=== PATIENT | male | born 1970 ===

== ENCOUNTER 2019-04-19 20:24 | Emergency (ER) | payer BC ==
--- NOTE | 2019-04-19 20:40 | UC ---
Dental HPI - HPI Summary HPI Summary: 48 yo man, generally in good health, with onset of left facial swelling and dental soreness today, in a known area of decay. No fever, no problems swallowing, no visual symptoms. - History of Current Complaint Stated Complaint: MOUTH/DENTAL COMPLAINT Time Seen by Provider: 04/19/19 20:40 Hx Obtained From: Patient Onset/Duration: Sudden Onset, Lasting Hours Severity: Moderate Aggravating Factor(s): Chewing Alleviating Factor(s): Nothing Related History: Other - known dental decay without recent treatment. - Allergies/Home Medications Allergies/Adverse Reactions: Allergies Allergy/AdvReac Type Severity Reaction Status Date / Time No Known Allergies Allergy Verified 04/19/19 20:40 PMH/Surg Hx/FS Hx/Imm Hx Previously Healthy: Yes - Family History Known Family History: Positive: Cardiac Disease - mother of CHF, had a fib - Social History Occupation: Employed Full-time Lives: With Family Review of Systems All Other Systems Reviewed And Are Negative: Yes Constitutional: Positive: Negative Skin: Positive: Negative Eyes: Positive: Negative ENT: Positive: Dental Pain Respiratory: Positive: Negative Cardiovascular: Positive: Negative Gastrointestinal: Positive: Negative Genitourinary: Positive: Negative Motor: Positive: Negative Neurovascular: Positive: Negative Musculoskeletal: Positive: Negative Neurological: Positive: Negative Psychological: Positive: Negative Is Patient Immunocompromised?: No Physical Exam Triage Information Reviewed: Yes Appearance: Well-Appearing, Pain Distress - mild to moderate Vital Signs Reviewed: Yes Eye Exam: Other - Normal EOM without pain Eyes: Positive: Conjunctiva Clear ENT Exam: Other - diffuse swelling of the left cheek, without induration, and no submandibular or preauricular adenopathy. ENT: Positive: Pharynx normal, TMs normal Dental: Positive: Percussion Tenderness @ - 12,13, Gross Decay/Caries @ - 12, 13 --deep decay of most of tooth, Abscess @ - 13 along gumline. Negative: Cervical Lymphadenopathy Neck: Positive: Supple, Nontender, No Lymphadenopathy Respiratory: Positive: Lungs clear, Normal breath sounds Musculoskeletal Exam: Normal Neurological Exam: Normal Psychological Exam: Normal Skin Exam: Normal Images Dental: 1 - deep decay, abscess formation 2 - deep decay Dental Complaint Course/Dx - Course Course Of Treatment: Pen VK, given as pediatric liquid as he has a long hx of excess gag reflex and cannot take pills. - Differential Dx/Diagnosis Differential Diagnosis/Dx: Dental Abscess, Dental Caries Provider Diagnosis: Dental abscess Discharge ED - Sign-Out/Discharge Documenting (check all that apply): Patient Departure All imaging exams completed and their final reports reviewed: No Studies - Discharge Plan Condition: Stable Disposition: HOME Prescriptions: Penicillin VK* LIQ* [Penicillin VK 250 MG/5 ML* LIQ*] 500 mg PO QID #300 ml Patient Education Materials: Dental Abscess (ED) Referrals: Brent Fagan MD [Primary Care Provider] - Additional Instructions: Take the full course of penicillin, and use ibuprofen for relief of pain. It is essential that you make contact with dentist and arrange follow up for dental care as soon as possible. - Billing Disposition and Condition Condition: STABLE Disposition: Home
[2019-04-19 20:47] VITALS: BP 139/87
[2019-04-19] MEDS ORDERED: Penicillin VK LIQ* 250 MG/5 ML 100 ML BTL PO ONE (20:58)
[2019-04-19] MEDS ORDERED: Ibuprofen ADULT LIQ* 600 MG/30 ML UDC PO ONE (21:00)
== END 2019-04-19 21:22 | disposition home or self-care (01) ==
LOC: UCCORT 20:24
DX: K04.7 Periapical abscess without sinus (principal)
CPT/HCPCS: 99203; A9270-GY; G0463